=== PATIENT | male | born 1990 | race Caucasian/White ===

== ENCOUNTER 2023-08-29 09:56 | Emergency (ER) | payer OTHER ==
[~2023-08-29] VITALS: Ht 188 cm; Wt 73.9 kg
[~2023-08-29 09:56] MED LIST: CLIN300 PO; HYDACE5 PO; RXHYDACE PO
[2023-08-29 10:02] VITALS: BP 136/97
== END 2023-08-29 11:16 | disposition home or self-care (01) ==
LOC: ER 09:56
DX: J93.83 Other pneumothorax (principal); Z88.0 Allergy status to penicillin
CPT/HCPCS: 71046; 93005; 93010; 99285-25

== ENCOUNTER 2024-05-16 05:48 | Emergency (ER) | payer OTHER ==
[~2024-05-16] VITALS: Ht 188 cm; Wt 73.0 kg
[2024-05-16 05:57] VITALS: BP 147/95
[2024-05-16 06:36] LABS: Source, Urine Clean Catch
[2024-05-16 06:42] LABS: Appearance, Urine Clear (Clear); Bilirubin, Urine Neg (Neg); Blood, Urine 1+ (Neg); Color, Urine Yellow (P-Yellow); Glucose Qualitative, Urine Neg (Neg); Ketones, Urine Neg (Neg); Leukocyte Esterase, Urine 1+ (Neg); Nitrite, Urine Neg (Neg); Protein, Urine 2+ (Neg); Specific Gravity, Urine 1.025 (1.003-1.022); Urobilinogen, Urine 1+ (Normal)
[2024-05-16 07:14] LABS: Red Blood Cells, Urine 0-2 /hpf (0-2); White Blood Cells, Urine 0-2 /hpf (0-5)
[2024-05-16 07:16] LABS: Squamous Epithelial Cells Rare /hpf (Few)
[2024-05-16 07:17] LABS: Amorphous Light (0-Heavy); Bacteria Few /hpf; Mucus Heavy (0-Heavy)
[2024-05-16] MEDS ORDERED: LEVFLO500 PO (07:54)
[2024-05-16] MEDS ORDERED: LevoFLOXacin 500 MG Tab PO ONE (07:55)
== END 2024-05-16 08:17 | disposition home or self-care (01) ==
LOC: ER 05:48
PROVIDERS: Student in an Organized Health Care Education/Training Program
DX: N45.1 Epididymitis (principal); Z88.0 Allergy status to penicillin; Z88.1 Allergy status to other antibiotic agents
CPT/HCPCS: 76870; 81001; 87086; 99284-25; A9270

== ENCOUNTER 2024-06-03 09:32 | Emergency (ER) | payer OTHER ==
[~2024-06-03] VITALS: Ht 188 cm; Wt 73.9 kg
[~2024-06-03 09:32] MED LIST changes: +LEVFLO500 PO
[2024-06-03 09:46] VITALS: BP 161/104
[2024-06-03] MEDS ORDERED: LEVFLO500 PO (09:52)
[2024-06-03] MEDS ORDERED: DOXY100 PO (09:52)
== END 2024-06-03 09:57 | disposition other institution (70) ==
LOC: ER 09:32
DX: N45.1 Epididymitis (principal); Z88.0 Allergy status to penicillin; Z79.2 Long term (current) use of antibiotics
CPT/HCPCS: 99283

== ENCOUNTER → 2024-09-21 | Outpatient (CLI) | payer OTHER ==
[~2024-09-21] MED LIST changes: +DOXY100 PO
[2024-09-21 18:18] LABS: BASOPHILS ABSOLUTE AUTO 0.03 K/mm3 (0.00-0.23); BASOPHILS PERCENT AUTO 0 % (0-2); EOSINOPHILS ABSOLUTE AUTO 0.04 K/mm3 (0.00-0.68); EOSINOPHILS PERCENT AUTO 1 % (0-6); Hematocrit 45.0 % (37.0-53.0); Hemoglobin 15.9 g/dL (13.5-17.5); IMMATURE GRAN ABSOLUTE AUTO 0.02 K/mm3 (0.00-0.10); IMMATURE GRAN PERCENT AUTO 0 % (0-1); LYMPHOCYTES ABSOLUTE AUTO 1.53 K/mm3 (0.84-5.20); LYMPHOCYTES PERCENT AUTO 22 % (21-46); MONOCYTES ABSOLUTE AUTO 0.60 K/mm3 (0.16-1.47); MONOCYTES PERCENT AUTO 9 % (4-13); Mean Corpuscular HGB Conc 35.3 g/dL (31.5-36.5); Mean Corpuscular Volume 92 fL (80-100); NEUTROPHILS ABSOLUTE AUTO 4.70 K/mm3 (1.96-9.15); NEUTROPHILS PERCENT AUTO 68 % (41-73); NRBC ABSOLUTE 0.00 K/mm3 (0.00-0.02); NRBC Auto 0.0 /100 WBC (0.0-0.2); Platelet Count 181 K/mm3 (150-400); RDW Coefficient Variation 11.9 % (11.7-14.2); RDW Standard Deviation 39.8 fL (35.1-46.3)
[2024-09-21 18:31] LABS: Alanine Aminotransfer (ALT/SGP 27.0 U/L (12-78); Albumin, Blood 4.3 g/dL (3.4-5.0); Albumin/Globulin Ratio 1.4 (0.8-1.8); Anion Gap 16.0 mmol/L (3-11); Aspartate Aminotrans (AST/SGOT 18.0 U/L (12-37); Bilirubin, Total 0.4 mg/dL (0.1-1.0); Blood Urea Nitrogen 9.0 mg/dL (8-24); CO2, Blood 23.0 mmol/L (21-32); Calcium, Blood 9.1 mg/dL (8.5-10.1); Chloride, Blood 100.0 mmol/L (98-108); Creatinine, Blood 0.72 mg/dL (0.60-1.20); Globulin, Blood 3.0 g/dL (2.2-4.0); Glucose, Blood 97.0 mg/dL (70-99); Potassium, Blood 3.8 mmol/L (3.5-5.5); Sodium, Blood 135.0 mmol/L (136-145); Total Protein, Blood 7.3 g/dL (6.4-8.2)
[2024-09-22 14:07] LABS: Campylobacter Sp Not Detected (NOT DETECT); E. Coli O157 Not Detected (NOT DETECT); Enteroaggregative E. coli-EAEC Not Detected (NOT DETECT); Enteropathogenic E. coli-EPEC Not Detected (NOT DETECT); Enterotoxigenic E. coli-ETEC Not Detected (NOT DETECT); Salmonella Sp Not Detected (NOT DETECT); Shiga Toxin-prod E. coli-STEC Not Detected (NOT DETECT); Shigella/Enteroin E. coli-EIEC Not Detected (NOT DETECT); Vibrio Sp Not Detected (NOT DETECT)
== END | disposition home or self-care (01) ==
LOC: LAB SHORT 18:15 → LAB 18:15
PROVIDERS: Family Medicine
DX: R11.2 Nausea with vomiting, unspecified (principal); R19.7 Diarrhea, unspecified
CPT/HCPCS: 80053; 85025; 87507

== ENCOUNTER 2024-10-09 19:09 | Emergency (ER) | payer OTHER ==
[~2024-10-09] VITALS: Ht 188 cm; Wt 67.1 kg
[2024-10-09 19:56] LABS: Source, Urine Clean Catch
[2024-10-09 20:01] LABS: Bilirubin, Urine Neg (Neg); Color, Urine Yellow (P-Yellow); Glucose Qualitative, Urine Neg (Neg); Ketones, Urine Neg (Neg); Leukocyte Esterase, Urine 1+ (Neg); Protein, Urine 1+ (Neg); Specific Gravity, Urine 1.025 (1.003-1.022); Urobilinogen, Urine 1+ (Normal)
[2024-10-09] MEDS ORDERED: RX Prepack 6 Tabs Oxycodone 5mg UD ONE (20:45)
[2024-10-09] MEDS ORDERED: CefTRIAXone 1000 MG Vial IM ONE (21:40)
[2024-10-09 21:47] VITALS: BP 128/77
== END 2024-10-09 22:00 | disposition home or self-care (01) ==
LOC: ER 19:09
PROVIDERS: Student in an Organized Health Care Education/Training Program
DX: N50.82 Scrotal pain (principal); Z87.438 Personal history of other diseases of male genital organs; Z88.0 Allergy status to penicillin
CPT/HCPCS: 76857; 76870; 81001; 87086; 96372; 99284-25; A9270; J0696